=== PATIENT | male | born 1990 | race Two or more races ===

== ENCOUNTER 2024-08-28 23:59 | Emergency (ER) | payer MEDICAID, OTHER ==
[~2024-08-28] VITALS: Ht 185.4 cm; Wt 83.4 kg
--- NOTE | 2024-08-29 02:05 | DVH ---
CLINICAL INDICATION: INJURY/PAIN TECHNIQUE: XY L ANKLE 3 VIEW Comparison: None FINDINGS: No osseous or joint abnormality identified with no evidence of joint effusion, fracture or dislocatio n. Ankle mortise appears unremarkable. IMPRESSION: No abnormality demonstrated.
[2024-08-29 03:20] VITALS: BP 116/74; PULSE 102; RESP 18; TEMP 98.9; O2SAT 99
--- NOTE | 2024-08-29 03:31 | ED.PDOC ---
Back pain HPI HPI Comments C/C: LEFT FOOT AND ANKLE PAIN. PATIENT STATES THAT HIS LEFT FOOT HAS BEEN HURTING FOR THE PAST TWO WEEKS FOR UNKNOWN REASON BUT YESTERDAY HE ROLLED HIS LEFT ANKLE. PATIENT STATES THAT HIS ANKLE FEELS NUMB AND HAS A LOT OF PAIN Chief Complaint: Lower Extremity Time Seen by MD: 00:24 Reviewed Notes: Nurses Notes, Medications, Allergies Allergies: Coded Allergies: NO KNOWN ALLERGIES (Unverified , 08/29/24) Information Source: Patient Mode of Arrival: Ambulatory Past Medical History PAST MEDICAL HISTORY: Denies Surgical History: Denies all surgeries Family History Family History: Unknown Social History Smoker: Non-Smoker Alcohol: Denies ETOH Use Drugs: Denies Drug Use Constitutional: denies: chills, diaphoresis, fatigue, fever, malaise, sweats, weakness, others EENTM: denies: blurred vision, double vision, ear bleeding, ear discharge, ear drainage, ear pain, ear ringing, eye pain, eye redness, hearing loss, mouth pain, mouth swelling, nasal discharge, nose bleeding, nose congestion, nose pain, photophobia, tearing, throat pain, throat swelling, voice changes, others Respiratory: denies: cough, hemoptysis, orthopnea, SOB at rest, shortness of breath, SOB with excertion, stridor, wheezing, others Cardiovascular: denies: chest pain, dizzy spells, diaphoresis, Dyspnea on exertion, edema, irregular heart beat, left arm pain, lightheadedness, palpitations, PND, syncope, others Gastrointestinal: denies: abdomen distended, abdominal pain, blood streaked bowels, constipated, diarrhea, dysphagia, difficulty swallowing, hematemesis, melena, nausea, poor appetite, poor fluid intake, rectal bleeding, rectal pain, vomiting, others Genitourinary: denies: burning, dysuria, flank pain, frequency, hematuria, incontinence, penile discharge, penile sore, pain, testicle pain, testicle swelling, urgency, others Neurological: denies: dizziness, fainting, headache, left sided numbness, left sided weakness, numbness, paresthesia, pre-existing deficit, right sided numbness, right sided weakness, seizure, speech problems, tingling, tremors, weakness, others Musculoskeletal: reports: others (LEFT ANKLE PAIN); denies: back pain, gout, joint pain, joint swelling, muscle pain, muscle stiffness, neck pain Integumetry: denies: bruises, change in color, change in hair/nails, dryness, laceration, lesions, lumps, rash, wounds, others Allergic/Immunocompromised: denies: Difficulty Healing, Frequent Infections, Hives, Itching, others Hematologic/Lymphatic: denies: anemia, blood clots, easy bleeding, easy bruising, swollen glands, others Endocrine: denies: excessive hunger, excessive sweating, excessive thirst, excessive urination, flushing, intolerance to cold, intolerance to heat, unexplained weight gain, unexplained weight loss, others Psychiatric: denies: anxiety, bipolar disorder, depression, hopeless, panic disorder, schizophrenia, sleepless, suicidal, others Physical Exam General Appearance: No Apparent Distress, Normal HEENT: Pharynx Normal Neck: Full Range of Motion, Non-Tender Respiratory: Lungs Clear, No Respiratory Distress, Normal Breath Sounds Cardiovascular: No Edema, No JVD, No Murmur, No Gallop, Normal Peripheral Pulses, Regular Rate/Rhythm Breast Exam: Deferred Gastrointestinal: No Organomegaly, Non Tender, No Pulsatile Mass, Normal Bowel Sounds, Soft Genitalia: Deferred Pelvic: Deferred Rectal: Deferred Extremities: Normal capillary refill, Normal inspection, Normal range of motion, Non-tender, No pedal edema Musculoskeletal : Location: Left Extremity Location: Ankle (TRACE EDEMA MILD TENDERNESS PALPATED OVER THE ANTERIOR ANKLE STRENGTH SENSORY MOTION INTACT POSITIVE PEDAL PULSE) Apperance: Normal 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 Was a procedure done?: No Back Pain Differential Dx Differential Diagnosis: Fracture, Musculoskeletal Pain X-Ray, Labs, Meds, VS Vital Signs Date Time Temp Pulse Resp B/P (MAP) Pulse Ox O2 Delivery O2 Flow Rate FiO2 08/29/24 00:19 99.1 114 16 112/72 (85) 97 99.1 X-Ray, Labs, Meds, VS Comment LEFT ANKLE X-RAY NEGATIVE FOR OSSEOUS LESIONS, FRACTURES DISLOCATIONS. SO LIKELY STRAIN/SPRAIN ADVISED ON RICE, ADVISED TO FOLLOW UP WITH HIS PCP IN 1-2 DAYS CALL I AND OBTAIN A PCP WITHIN THE AREA. ADVISED ON ER RETURN PRECAUTIONS PATIENT INDICATED UNDERSTANDING AGREES WITH DISCHARGE PLAN OF CARE. Time of 1ST Reevaluation: 03:39 Reevaluation 1ST: Improved Patient Education/Counseling: Diagnosis, Treatment, Prognosis, Need For Follow Up Family Education/Counseling: No Family Present Departure 1 Departure Time of Disposition: 03:31 Impression: Primary Impression: Sprain of left ankle Qualified Codes: S93.402A - Sprain of unspecified ligament of left ankle, initial encounter Disposition: HOME / SELF CARE / HOMELESS Condition: Stable Discharged With: Self Critical Care Note Critical Care Time?: No Stability Stability form required: MARYCARMEN Nicole Aug 29, 2024 03:31
== END 2024-08-29 03:44 | disposition home or self-care (01) ==
LOC: ER 23:59
DX: S93.492A Sprain of other ligament of left ankle, initial encounter (principal); M79.672 Pain in left foot; X58.XXXA Exposure to other specified factors, initial encounter; Y93.89 Activity, other specified; Y92.89 Other specified places as the place of occurrence of the external cause; Y99.8 Other external cause status
CPT/HCPCS: 73610